=== PATIENT | female | born 1950 | race Caucasian/White ===

== ENCOUNTER 2017-03-15 15:34 | Emergency (ER) | payer MEDICARE, OTHER ==
[2017-03-15 16:14] LABS: BASO # 0.1 10_X3_uL (0.0-0.1); BASO % 0.6 % (0.1-1.2); EOS # 2.3 10_X3_uL (0.0-0.4); EOS % 22.9 % (0.7-5.8); GRAN # 4.7 10_X3_uL (1.6-6.1); GRAN % 45.6 % (34.0-71.1); HEMATOCRIT 36.7 % (34-45); HEMOGLOBIN 11.9 g/dL (11.2-15.7); LYMPH # 2.5 10_X3_uL (1.2-3.7); LYMPH % 24.1 % (19.3-51.7); MEAN CORPUSCULAR HEMOGLOBIN 27.8 pg (27.0-33.0); MEAN CORPUSCULAR HGB CONC 32.4 g/dL (32.0-36.0); MEAN CORPUSCULAR VOLUME 85.7 fL (79-95); MEAN PLATELET VOLUME 9.5 fl (7.5-11.5); MONO # 0.7 10_X3_uL (0.2-0.9); MONO % 6.8 % (4.7-12.5); PLATELET COUNT 363 x10_3/uL (182-369); RED BLOOD COUNT 4.28 x10_6/uL (3.9-5.2); RED CELL DISTRIBUTION WIDTH 14.9 % (11.7-14.4); WHITE BLOOD COUNT 10.2 x10_3/uL (4.0-10.0)
[2017-03-15 16:31] LABS: ALBUMIN 4.2 gm/dL (3.4-5.0); BILIRUBIN,TOTAL 0.29 mg/dL (0.0-1.0); CALCIUM 9.3 mg/dL (8.7-10.7); CREATININE 1.1 mg/dL (0.6-1.3); TOTAL PROTEIN 7.6 gm/dL (6.4-8.2)
[2017-03-15 16:36] LABS: POTASSIUM 5.2 mmol/L (3.5-5.1)
== END 2017-03-15 17:33 | disposition home or self-care (01) ==
LOC: ER 15:34
PROVIDERS: General Practice
DX: E87.5 Hyperkalemia (principal); N28.9 Disorder of kidney and ureter, unspecified; R60.0 Localized edema; R06.02 Shortness of breath; R06.2 Wheezing; G89.29 Other chronic pain; J44.9 Chronic obstructive pulmonary disease, unspecified; J84.9 Interstitial pulmonary disease, unspecified; I50.9 Heart failure, unspecified; E03.9 Hypothyroidism, unspecified; K21.9 Gastro-esophageal reflux disease without esophagitis; G25.81 Restless legs syndrome; I73.9 Peripheral vascular disease, unspecified; Z79.899 Other long term (current) drug therapy; Z88.0 Allergy status to penicillin; Z88.8 Allergy status to other drugs, medicaments and biological substances; Z88.6 Allergy status to analgesic agent
CPT/HCPCS: 36415; 71010; 80053; 83880; 85025; 93005; 94664; 99285-25